=== PATIENT | male | born 1990 | race African-American/Black ===

== ENCOUNTER 2016-11-19 12:02 | Emergency (ER) | payer SELFPAY ==
[~2016-11-19] VITALS: Ht 182.9 cm; Wt 73.5 kg
[2016-11-19 14:33] LABS: BASOPHILS % (AUTO) 1.6 % (0.0-2.0); EOSINOPHILS % (AUTO) 0.1 % (0.0-3.0); LYMPHOCYTES % (AUTO) 42.6 % (20.0-45.0); MEAN CORPUSCULAR HEMOGLOBIN 26.4 PG (27.0-31.0); MEAN CORPUSCULAR HGB CONC 31.4 G/DL (32.0-36.0); MEAN CORPUSCULAR VOLUME 84 FL (80-99); MEAN PLATELET VOLUME 6.7 FL (6.5-10.1); MONOCYTES % (AUTO) 8.9 % (1.0-10.0); NEUTROPHILS % (AUTO) 46.9 % (45.0-75.0); PLATELET COUNT 277 K/UL (150-450); RED BLOOD COUNT 6.28 M/UL (4.70-6.10); RED CELL DISTRIBUTION WIDTH 12.9 % (11.6-14.8); WHITE BLOOD COUNT 4.2 K/UL (4.8-10.8)
[2016-11-19 14:45] LABS: ALANINE AMINOTRANSFERASE 8 U/L (3-41); ALBUMIN/GLOBULIN RATIO 1.4 (1.0-2.7); ANION GAP 19 (5-15); ASPARTATE AMINO TRANSFERASE 13 U/L (5-40); CALCIUM 9.6 mg/dL (8.6-10.2); CARBON DIOXIDE 24 mEQ/L (20-30); CHLORIDE 99 mEQ/L (98-107); CREATININE 0.9 mg/dL (0.7-1.2); GLOMERULAR FILTRATION RATE > 60 mL/min (>60); HEMOLYSIS 5; LIPASE 15 U/L (< 60); POTASSIUM 4.1 mEQ/L (3.4-4.9); SODIUM 142 mEQ/L (135-145)
[2016-11-19] MEDS ORDERED: Metoclopramide 10mg/2ml Inj IVP ONE (15:15)
[2016-11-19 15:30] VITALS: BP 132/79
[2016-11-19] MEDS ORDERED: REGLAN10 MG ORAL (16:56)
[2016-11-19] MEDS ORDERED: OMEPRAZOLE20 M2 ORAL (16:56)
[2016-11-19 17:08] VITALS: BP 127/84
--- NOTE | 2016-12-28 12:01 | Emergency Room Report ---
History of Present Illness General Chief Complaint: Nausea, Vomiting, and Diarrhea Source: Patient Present Illness HPI 26 y/o male c/o flu-like sxs x 10 days. Assoc sxs include n/d and epigastric pain. Sxs are worse with eating food and have no relieving factors. Denies any significant past medical history. Currently not taking any medications. Denies any documented fever, chills, QUINONES, sore throat, CP, SOB, cough, rash, melena, dysuria, GERD, or unexplained weight loss. Allergies: Coded Allergies: No Known Allergies (Unverified , 11/19/16) Patient History Past Surgical History: none Immunizations: UTD Reviewed Nursing Documentation: PMH: Agreed, PSxH: Agreed Nursing Documentation-PMH Past Medical History: No History, Except For Hx Asthma: Yes Review of Systems All Other Systems: negative except mentioned in HPI Physical Exam Vital Signs Date Time Temp Pulse Resp B/P Pulse Ox O2 Delivery O2 Flow Rate FiO2 11/19/16 12:47 97.5 98 14 125/76 100 Room Air Sp02 EP Interpretation: reviewed, normal General Appearance: no apparent distress, alert, GCS 15, non-toxic Head: normocephalic, atraumatic Eyes: bilateral eye PERRL, bilateral eye normal inspection ENT: hearing grossly normal, normal pharynx, no angioedema, normal voice Neck: full range of motion, supple/symm/no masses Respiratory: chest non-tender, lungs clear, normal breath sounds, speaking full sentences Cardiovascular #1: regular rate, rhythm, no edema Gastrointestinal: soft, non-distended, no guarding, tenderness - epigastric Rectal: deferred Musculoskeletal: gait/station normal, normal range of motion Neurologic: alert, oriented x3, hand braille transcriber III-XII nml as tested, normal gait Skin: normal color, no rash, warm/dry, well hydrated Lymphatic: no adenopathy Medical Decision Making PA Attestation Dr. Orellana is my supervising physician with whom patient management has been discussed with. Diagnostic Impression: Primary Impression: Abdominal pain Qualified Codes: R10.13 - Epigastric pain ER Course Pt. presents to the ED c/o [] Ddx considered but are not limited to viral syndrome, appendicitis, diverticulitis, gastroenteritis, abdominal hernia, pancreatitis, cholecystitis, nephrolithiasis, and testicular torsion. Vital signs: are WNL, pt. is afebrile H&PE are most consistent with Non-specific abd pain ORDERS: Labs ED INTERVENTIONS: NS, Reglan DISCHARGE: Patient feeling better after Reglan and IV hydration. Has appetite back and tolerating PO intake. At this time pt. is stable for d/c to home. Will provide printed patient care instructions, and any necessary prescriptions. Care plan and follow up instructions have been discussed with the patient prior to discharge. Last Vital Signs Date Time Temp Pulse Resp B/P Pulse Ox O2 Delivery O2 Flow Rate FiO2 11/19/16 17:08 88 14 127/84 100 Room Air 11/19/16 15:30 97.5 Status: improved Reevaluation Impression Last Vital Signs Date Time Temp Pulse Resp B/P Pulse Ox O2 Delivery O2 Flow Rate FiO2 11/19/16 17:08 88 14 127/84 100 Room Air 11/19/16 15:30 97.5 Disposition: HOME, SELF-CARE Condition: Improved Scripts Metoclopramide Hcl* (REGLAN*) 10 Mg Tablet 10 MG ORAL THREE TIMES A DAY for Nausea & Vomiting, #30 TAB Prov: WILFRIDO WYATT P.A. 11/19/16 Omeprazole (OMEPRAZOLE) 20 Mg Capsule.dr 20 MG ORAL DAILY, #14 CAP Prov: WILFRIDO WYATT P.A. 11/19/16 Patient Instructions: Nausea and Vomiting, Adult, Abdominal Pain, Adult WILFRIDO WYATT P.A. December 28, 2016 12:01
== END 2016-11-19 17:24 | disposition home or self-care (01) ==
LOC: EMR 13:08
DX: R10.13 Epigastric pain (principal); R11.0 Nausea; J45.909 Unspecified asthma, uncomplicated
CPT/HCPCS: 36415; 80053; 83690; 85025; 96374; 96375; 99284; J2765